=== PATIENT | male | born 1985 | race Hispanic/Latino ===

== ENCOUNTER 2022-09-17 09:16 | Emergency (ER) | payer MEDICAID ==
[~2022-09-17] VITALS: Ht 180.3 cm; Wt 132.9 kg
[2022-09-17 12:15] VITALS: BP 133/68; PULSE 77; RESP 20; O2SAT 0
== END 2022-09-17 14:04 | disposition home or self-care (01) ==
LOC: EDH 09:16
DX: J02.9 Acute pharyngitis, unspecified (principal); Z85.038 Personal history of other malignant neoplasm of large intestine; Z20.822 Contact with and (suspected) exposure to COVID-19
CPT/HCPCS: 99283; 87635; 87880; 87804 ×2; C9803